=== PATIENT | male | born 1945 | race Caucasian/White ===

== ENCOUNTER 2023-09-11 18:11 | Emergency (ER) | payer OTHER, SELFPAY ==
[2023-09-11 18:17] VITALS: PULSE 59; RESP 16; O2SAT 98
[2023-09-11 18:22] VITALS: BP 127/60; PULSE 58; RESP 16; TEMP 36.5; O2SAT 99; BMI 27.1
--- NOTE | 2023-09-11 18:27 | ED.GENADULT ---
HPI - General Adult General Chief complaint: Syncope Stated complaint: near syncope Time Seen by Provider: 09/11/23 18:17 History of Present Illness HPI narrative: 78-year-old male presents by EMS from [email or web address] for syncopal episode. Patient was eating calamari at dinner when he told his that his esophagus hurt. He then told her that he felt like he had to have a bowel movement and began to space out. Family was concerned because the patient did not seem to be responding to them and called 911. at bedside states that she was able to feel a pulse the entire time and it was strong and steady. When EMS arrived patient was bradycardic from 30-50s with palpable pulse. He was started on IV fluids and transported tot he ED. Patient mental status improved during transport, and by the time of arrival to the ED he reported feeling back to normal and ready to go home Exam Initial Vital Signs Initial Vital Signs: Vital Signs Pulse Rate 59 L 09/11/23 18:17 Respiratory Rate 16 09/11/23 18:17 Pulse Oximetry 98 09/11/23 18:17 Const: Awake, alert, no acute distress, nontoxic appearing Cardiac: Bradycardia, regular rhythm RESP: unlabored, clear bilaterally, no wheezing GI: Soft, nontender, nondistended, no rebound, no guarding Skin: Warm, Dry, intact, no rashes Neuro: AO x3, CN II-XII grossly intact, moves all extremities Course Orders Ordered: ED Orders 09/11/23 18:17 CBC Auto Diff [Complete Blood Count AUTO DIFF] Stat CMP [Comprehensive Metabolic Panel] Stat PT [Prothrombin Time INR] Stat Troponin & CK Cardiac Panel Stat 09/11/23 18:32 EKG-12 Lead Stat 09/11/23 18:40 XR chest 1V Stat Vital Signs Vital signs: Vital Signs - 8 hr 09/11/23 18:17 09/11/23 18:22 09/11/23 18:30 Temperature 97.7 F Pulse Rate 59 L 58 L 57 L Respiratory Rate 16 16 18 Blood Pressure 127/60 Pulse Oximetry 98 99 98 Oxygen Delivery Method Room Air 09/11/23 19:00 09/11/23 19:00 Temperature Pulse Rate 54 L Respiratory Rate 18 Blood Pressure 145/70 H Pulse Oximetry 99 Oxygen Delivery Method Medical Decision Making Differential Diagnosis Differential Diagnosis: Vasovagal syncope, orthostatic syncope, third-degree heart block Lab Data 09/11/23 18:17 09/11/23 18:17 Labs: Lab Results 09/11/23 Range/Units 18:17 WBC 7.3 (4.5-11.0) X10^3/uL RBC 4.33 L (4.5-5.9) X10^6/uL Hgb 13.3 L (13.5-17.5) g/dL Hct 39.4 L (41-53) % MCV 91.0 (80-100) fL MCH 30.7 (26-34) PG MCHC 33.7 (30-36) % RDW 14.3 (11.6-14.8) % Plt Count 201 (150-400) X10^3/uL Neut % (Auto) 49.1 L (50-75) % Lymph % (Auto) 36.3 (25-40) % [place] % (Auto) 10.6 (3-14) % Eos % (Auto) 3.8 (2-4) % Baso % (Auto) 0.2 (0-2) % Neut # (Auto) 3600 (0924-3880) /uL Lymph # (Auto) 2600 (5191-4101) /uL [place] # (Auto) 800 (0-900) /uL Eos # (Auto) 300 (0-450) /uL Baso # (Auto) 0 (0-100) /uL PT 11.3 (9.4-12.5) SECONDS INR 1.0 (0.9-1.3) Sodium 134 L (137-145) mmol/L Potassium 3.4 (3.4-5.1) mmol/L Chloride 102 (98-107) mmol/L Carbon Dioxide 27 (22-32) mmol/L BUN 17 (9-20) mg/dL Creatinine 0.98 (0.66-1.25) mg/dL Estimated GFR > 60 (>60) mL/min BUN/Creatinine Ratio 17.3 (6-22) Glucose 162 H (80-110) mg/dL Calcium 9.0 (8.4-10.2) mg/dL Total Bilirubin 1.0 (0.2-1.3) mg/dL AST 24 (17-59) IU/L ALT 19 (<50) IU/L Alkaline Phosphatase 57 (38-126) U/L Total Creatine Kinase 122 (55-170) U/L Troponin I < 0.012 (0.01-0.034) ng/mL Total Protein 6.6 (6.3-8.2) g/dL Albumin 3.7 (3.5-5.0) g/dL Globulin 2.9 (1.7-4.1) g/dL Albumin/Globulin Ratio 1.3 (1.0-2.8) ECG Data Interpretation: Sinus bradycardia 59 beats per minute, first-degree AV block, single PVC present, no ST T wave changes MDM Narrative Medical decision making narrative: Well-appearing patient with syncopal episode while eating dinner. Based on patient's description of the event as well as family history at bedside this is very likely vasovagal in nature. Patient did have brief bradycardia and hypotension in the restaurant, however he was currently normal sinus rhythm at 50s to 60s beats per minute with normal blood pressure. Patient states he feels back to baseline, has no complaints, in his eager to go home. Laboratory work is reviewed, unremarkable, troponin undetectable, EKG sinus rhythm without QT prolongation or concerning patterns. Chest x-ray reviewed, bibasilar atelectasis without other concerning findings. Patient ambulatory throughout the emergency department without any assistance. Patient again states he feels ready to go home. Family is comfortable taking patient home with them. Patient counseled on presumptive diagnosis as well as on the importance of PCP follow up. Discharge Plan Departure Patient Disposition: Home Clinical Impression: Vasovagal syncope Instructions: DI for Syncope in Adults (Fainting) Activity Restrictions/Additional Instructions: Get plenty of rest and drink plenty of fluids. I hope the Mariamari was tasty! Referrals: Miscellaneous,Doctor, MD [Primary Care Provider] - Stand Alone Forms: Patient Portal/API
[2023-09-11 18:30] VITALS: PULSE 57; RESP 18; O2SAT 98
--- NOTE | 2023-09-11 18:40 | DI.RAD.S_ITS ---
PROCEDURE: XR CHEST 1V INDICATIONS: syncope TECHNIQUE: One view of the chest was acquired. COMPARISON: None. FINDINGS: Surgical changes and devices: None. Lungs and pleura: Patchy bibasilar atelectasis. No pleural effusions or pneumothorax. Mediastinum: Mediastinal contours appear normal. Heart size is normal. Bones and chest wall: No suspicious bony lesions. Overlying soft tissues appear unremarkable. IMPRESSION: Patchy bibasilar atelectasis. Dictated by: Jd Tim M.D. on 09/11/2023 at 18:59 Approved by: Jd Tim M.D. on 09/11/2023 at 19:00
[2023-09-11 18:43] LABS: Prothrombin Time 11.3 SECONDS (9.4-12.5)
[2023-09-11 18:49] LABS: Alanine Aminotransferase 19 IU/L (<50); Albumin 3.7 g/dL (3.5-5.0); Albumin Globulin Ratio 1.3 (1.0-2.8); Alkaline Phosphatase 57 U/L (38-126); Aspartate Aminotransferase 24 IU/L (17-59); BUN Creatinine Ratio 17.3 (6-22); Blood Urea Nitrogen 17 mg/dL (9-20); Carbon Dioxide 27 mmol/L (22-32); Chloride 102 mmol/L (98-107); Creatine Kinase 122 U/L (55-170); Estimated Glomerular Filt Rate > 60 mL/min (>60); Globulin 2.9 g/dL (1.7-4.1); Glucose 162 mg/dL (80-110); HEMOLYSIS < 15 (0-50); Potassium 3.4 mmol/L (3.4-5.1); Sodium 134 mmol/L (137-145); Total Protein 6.6 g/dL (6.3-8.2)
[2023-09-11 18:51] LABS: Add Manual Diff / Slide Review NO; Basophils Absolute Auto 0 /uL (0-100); Basophils Percent Auto 0.2 % (0-2); Eosinophils Absolute Auto 300 /uL (0-450); Eosinophils Percent Auto 3.8 % (2-4); Hematocrit 39.4 % (41-53); Hemoglobin 13.3 g/dL (13.5-17.5); Lymphocytes Absolute Auto 2600 /uL (1100-4500); Lymphocytes Percent Auto 36.3 % (25-40); Mean Corpuscular HGB Conc 33.7 % (30-36); Mean Corpuscular Hemoglobin 30.7 PG (26-34); Monocytes Absolute Auto 800 /uL (0-900); Monocytes Percent Auto 10.6 % (3-14); Neutrophils Absolute Auto 3600 /uL (1500-7000); Neutrophils Percent Auto 49.1 % (50-75); Platelet Count 201 X10^3/uL (150-400); Red Blood Cell Count 4.33 X10^6/uL (4.5-5.9); Red Cell Distribution Width 14.3 % (11.6-14.8); White Blood Cell Count 7.3 X10^3/uL (4.5-11.0)
--- NOTE | 2023-09-11 18:55 | PC.NURSE ---
and daughter at bedside. reports that patient had some esophageal pain and thought he had eaten too much calamari and then stood up to go to the bathroom when he started to pass out. lowered patient back into chair without falling or injury. His pulse during this time was in the 30s therefore EMS was called.
[2023-09-11 19:00] VITALS: BP 145/70; PULSE 54; RESP 18; O2SAT 99
[2023-09-11 19:00] LABS: Troponin I < 0.012 ng/mL (0.01-0.034)
--- NOTE | 2023-09-11 19:36 | PC.NURSE ---
pt ambulated around ED with no issues.
== END 2023-09-11 19:37 | disposition home or self-care (01) ==
PROVIDERS: Emergency Provider Emergency Medicine
DX: R55 Syncope and collapse (principal); R00.1 Bradycardia, unspecified; I44.0 Atrioventricular block, first degree
CPT/HCPCS: 36415; 71045; 80053; 82550; 84484; 85025; 85610; 93005; 93010; 99283; 99284